=== PATIENT | female | born 2000 | race Caucasian/White ===

== ENCOUNTER 2024-05-31 19:12 | Emergency (ER) | payer MEDICAID ==
[~2024-05-31] VITALS: Ht 149.9 cm; Wt 52.2 kg
[2024-05-31 19:23] VITALS: BP 100/55; PULSE 83; RESP 16; TEMP 98.5; O2SAT 99
[2024-05-31 20:29] LABS: CLARITY URINE TURBID (CLEAR); COLOR URINE DARK YELLOW (YELLOW); GLUCOSE URINE NEGATIVE (NEGATIVE); KETONES URINE NEGATIVE (NEGATIVE); LEUKOCYTE ESTERASE URINE 2+ (NEGATIVE); NITRITE URINE POSITIVE (NEGATIVE); OCCULT BLOOD URINE NEGATIVE (NEGATIVE); PROTEIN URINE NEGATIVE (NEGATIVE)
[2024-05-31 21:03] LABS: BASOPHILS % 0.6 % (0.0-2.0); EOSINOPHILS % 2.6 % (0.0-5.0); HEMATOCRIT. 37.1 % (36.0-48.0); HEMOGLOBIN. 12.4 g/dL (12.0-16.0); LYMPHOCYTES % 43.6 % (20.0-50.0); MEAN CORPUSCULAR HEMOGLOBIN 29.8 pg (28.0-32.0); MEAN CORPUSCULAR HGB CONC 33.3 g/dL (31.0-37.0); MEAN CORPUSCULAR VOLUME 89.4 fL (81.0-99.0); MONOCYTES % 8.7 % (2.0-8.0); NEUTROPHILS % 44.5 % (40.0-76.0); PLATELET 299 x1000/uL (130-400); RED BLOOD CELL COUNT 4.15 mill/uL (4.2-5.4); RED CELL DISTRIBUTION WIDTH 14.4 % (11.6-14.6); WHITE BLOOD COUNT 6.2 x1000/uL (4.5-11.0)
[2024-05-31 21:07] LABS: CHLORIDE 108 mEq/L (98-107); POTASSIUM 4.1 mEq/L (3.5-5.1); SODIUM 138 mEq/L (136-145)
[2024-05-31 21:08] LABS: CARBON DIOXIDE 28 mEq/L (21-32)
[2024-05-31 21:09] LABS: CALCIUM 9.7 mg/dL (8.7-10.4)
[2024-05-31 21:13] LABS: CREATININE 0.7 mg/dL (0.6-1.0); GLUCOSE 84 mg/dL (70-105); UREA NITROGEN BLOOD 11 mg/dL (9-23)
[2024-05-31 21:15] LABS: ALANINE AMINOTRANSFERASE 11 IU/L (10-49); ALBUMIN 4.1 g/dL (3.2-4.8); ASPARTATE AMINOTRANSFERASE 17 IU/L (<34); BILIRUBIN TOTAL 0.3 mg/dL (0.1-1.0)
[2024-05-31 21:16] LABS: BILIRUBIN DIRECT < 0.1 mg/dL (<=3.0); PROTEIN TOTAL 6.7 g/dL (6.0-8.3)
[2024-05-31 21:20] LABS: HCG SCREEN NEGATIVE
[2024-05-31 21:32] LABS: AMORPHOUS SEDIMENT URINE 1+ /lpf; BACTERIA URINE 4+; RBC URINE 0-2 /hpf (0-2); SQUAMOUS EPITHELIAL CELL URINE 2+ /lpf (RARE/1+)
[2024-05-31] MEDS ORDERED: PHEN-815 MT (21:49)
[2024-05-31] MEDS ORDERED: NITR-87 MT (21:49)
== END 2024-05-31 22:41 | disposition home or self-care (01) ==
LOC: ER 19:12
DX: N39.0 Urinary tract infection, site not specified (principal); F41.9 Anxiety disorder, unspecified
CPT/HCPCS: 36415; 80048; 80076; 81003; 81025; 84703; 85025; 86850; 86900; 99283